=== PATIENT | male | born 1970 | race African-American/Black ===

== ENCOUNTER 2017-01-15 14:18 | Observation (INO) | payer MEDICAID ==
[~2017-01-15] VITALS: Ht 172.7 cm; Wt 95.3 kg
[2017-01-15 22:07] LABS: BASOPHILS % 0.5 % (0.0-2.0); EOSINOPHILS % 1.7 % (0.0-5.0); HEMATOCRIT. 47.9 % (42.0-52.0); HEMOGLOBIN. 16.5 g/dL (14.0-18.0); LYMPHOCYTES % 12.8 % (20.0-50.0); MEAN CORPUSCULAR HEMOGLOBIN 30.8 pg (28.0-32.0); MEAN CORPUSCULAR VOLUME 89.4 fL (80.0-94.0); MEAN PLATELET VOLUME 8.4 fl (7.4-10.4); PLATELET 224 x1000/uL (130-400); RED BLOOD CELL COUNT 5.36 mill/uL (4.7-6.1); RED CELL DISTRIBUTION WIDTH 13.2 % (11.6-14.6)
[2017-01-15 22:14] LABS: CHLORIDE 100 mEq/L (98-107)
[2017-01-15 22:15] LABS: PROTHROMBIN TIME 10.8 sec (9.4-11.6)
[2017-01-15 22:23] LABS: CARBON DIOXIDE 31 mEq/L (21-32)
[2017-01-16] MEDS ORDERED: MORPHINE SULFATE 4 MG/ML CPJ (NOT FOR IM USE) IV ONE (00:45)
[2017-01-16] MEDS ORDERED: PIPERACILLIN/TAZOBACTAM 3.375GM/50ML PREMIX IV SCH (01:00)
[2017-01-16] MEDS ORDERED: MORPHINE SULFATE 4 MG/ML CPJ (NOT FOR IM USE) IV STA (08:00)
[2017-01-16] MEDS ORDERED: ONDANSETRON HCL 4MG/2ML VIAL IV PRN ×2 (09:30→10:00)
[2017-01-16] MEDS ORDERED: MORPHINE SULFATE 4 MG/ML CPJ (NOT FOR IM USE) IV PRN ×2 (09:30)
[2017-01-16] MEDS ORDERED: HYDROCODONE/ACETAMINOPHEN 5/325MG TABLET PO PRN (09:30)
[2017-01-16] MEDS ORDERED: BUPIVACAINE HCL/PF 0.5% (5MG/ML) 10ML ONE (09:31)
[2017-01-16] MEDS ORDERED: MIDAZOLAM HCL 2 MG/2 ML VIAL ONE (09:35)
[2017-01-16] MEDS ORDERED: FENTANYL CITRATE/PF 50MCG/ML 2ML VIAL ONE (09:35)
[2017-01-16] MEDS ORDERED: LIDOCAINE HCL 1% 20ML VIAL (Pyxis) INJ ONE (09:42)
[2017-01-16] MEDS ORDERED: PROPOFOL 200MG/20ML VIAL IV ONE (09:42)
[2017-01-16] MEDS ORDERED: DEXAMETHASONE 4MG/ML 1ML VIAL ONE (09:42)
[2017-01-16] MEDS ORDERED: HYDROMORPHONE HCL/PF 2MG/ML CPJ IV PRN (10:00)
[2017-01-16] MEDS ORDERED: LABETALOL 5MG/ML SYR 20 MG/4 ML SYRINGE IV PRN (10:00)
[2017-01-16] MEDS ORDERED: MEPERIDINE HCL/PF 25MG/ML CPJ IV PRN (10:00)
[2017-01-16 14:15] VITALS: BP 117/78
[2017-01-16] MEDS: DEXT 5%/0.45% NACL KCL 20MEQ/L 1,000 ML IV SCH (18:08)
[2017-01-16] MEDS: HYDROCODONE/ACETAMINOPHEN 5/325MG TABLET PO PRN (18:40)
[2017-01-16 20:05] VITALS: BP 115/70
[2017-01-17 00:10] VITALS: BP 101/59
[2017-01-17] MEDS: HYDROCODONE/ACETAMINOPHEN 5/325MG TABLET PO PRN ×3 (00:20→13:30)
[2017-01-17 04:30] VITALS: BP 101/58
[2017-01-17] MEDS: DEXT 5%/0.45% NACL KCL 20MEQ/L 1,000 ML IV SCH (04:52)
[2017-01-17 07:43] LABS: HEMATOCRIT 38.8 % (42.0-52.0); HEMOGLOBIN 13.7 g/dL (14.0-18.0); MEAN CORPUSCULAR VOLUME 87.9 fL (80.0-94.0); PLATELET 199 x1000/uL (130-400); RED BLOOD CELL COUNT 4.41 mill/uL (4.7-6.1); RED CELL DISTRIBUTION WIDTH 12.9 % (11.6-14.6)
[2017-01-17 08:39] LABS: CARBON DIOXIDE 27 mEq/L (21-32); CHLORIDE 103 mEq/L (98-107)
[2017-01-17 12:33] VITALS: BP 113/69
[2017-01-17 13:42] VITALS: BP 113/69
== END 2017-01-17 14:00 | disposition home or self-care (01) ==
LOC: ER 14:18 → INTOOBSV 01-16 00:55 → 6WST 01-16 00:55 → EDBEDREQ 01-16 00:55 → EDBEDREQSVC 01-16 00:56
PROVIDERS: ADMIT Specialist; ATTEND Internal Medicine
DX: K61.1 Rectal abscess (principal)
CPT/HCPCS: 36415; 46040; 74177; 80053; 83605; 85025; 85027; 85610; 87040; 87070; 87075; 87077; 87086; 87186; 87205; 93005; 96365; 96375; 96376; 99285; G0378; J1100; J2250; J2270; J2405; J2543; J3010; J3490; J2704